=== PATIENT | female | born 1970 | race American Indian/Alaskan Native ===

== ENCOUNTER 2016-11-20 08:14 | Outpatient (CLI) | payer BC ==
--- NOTE | 2016-11-20 16:20 | Mammography Report ---
LEFT DIGITAL DIAGNOSTIC MAMMOGRAM and LEFT BREAST ULTRASOUND: 11/20/16 08:14:00 CLINICAL: Recalled for asymmetry. COMPARISON:10/23/16 screening. screening FINDINGS: Lateralmedial and spot compression CC views were performed. Low-density lobulated periareolar mass persists at 6 o'clock. Ultrasound of the left breast demonstrated a cluster of three solid hypoechoic masses with relatively smooth margins at 6 o'clock near the areola.. They measure 1.4 x 0.9 x 0.5 cm, 1.4 x 1.1 x 0.5 cm and 1.0 x 0.5 x 1.0 cm. 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 BI-RADS CATEGORY: 3 - - Probably Benign RECOMMENDATION: Six month followup mammogram and left breast ultrasound. ACR BI-RADS MAMMOGRAPHIC CODES: 0 = Needs additional imaging evaluation; 1 = Negative; 2 = Benign; 3 = Probably benign; 4 = Suspicious; 5 = Malignant; 6 = Known biopsy-proven malignancy COMMENT: 1. Dense breast tissue, i.e., adenosis, fibrocystic changes, etc., may obscure an underlying neoplasm. 2. Approximately 10% of cancers are not detected with mammography. 3. A negative mammography report should not delay biopsy if a clinically suspicious mass is present. COMMENT: Patient follow-up letters are generated via our farmho[employer] application.
== END 2016-11-20 08:15 | disposition home or self-care (01) ==
LOC: MAMMO 08:14
PROVIDERS: ATTEND Internal Medicine
DX: R92.8 Other abnormal and inconclusive findings on diagnostic imaging of breast (principal)
CPT/HCPCS: 76642; G0206